=== PATIENT | male | born 1955 | race American Indian/Alaskan Native ===

== ENCOUNTER 2016-09-16 16:00 | Emergency (ER) | payer OTHER ==
--- NOTE | 2016-09-16 23:29 | Emergency Department Report ---
HPI - General Chief Complaint: Extremity Injury, Lower Time Seen by Provider: 09/16/16 22:51 - HPI HPI: This is a 61-year-old Afro-[place] male presents to the emergency department with complaint of a one-week history of swelling to the left lower extremity from the middle of the aguilar down through the ankle and foot. It also is associated with some intermittent discomfort. This occurred started shortly after the patient had a collision with another person while sliding while playing soccer. He denies any cleats went into the leg. Patient has been ambulatory since this began. He has not taken anything for symptoms prior to presentation. He has a past medical history of [id number] diabetes. He has a primary care doctor, Dr. Bone, but has not seen them regarding his symptoms. No recent travel or sick contacts at home. He denies any history of DVT or PE. He denies any skin color change, warmth, bleeding, weeping or drainage. ED Past Medical Hx - Past Medical History Hx Diabetes: Yes - Surgical History Past Surgical History?: No - Social History Smoking Status: Never Smoker Substance Use Type: None - Medications Home Medications: Home Medications Medication Instructions Recorded Confirmed Last Taken Type metFORMIN [Glucophage] 1,000 mg PO BID 09/16/16 09/16/16 09/16/16 History ED Review of Systems ROS: Stated complaint: BRUISED AGUILAR/SWOLLEN ANKLE Other details as noted in HPI Comment: All other systems reviewed and negative Constitutional: denies: chills, fever Eyes: denies: eye pain, eye discharge, vision change ENT: denies: ear pain, throat pain Respiratory: denies: cough, shortness of breath, wheezing Cardiovascular: edema. denies: chest pain, palpitations Gastrointestinal: denies: abdominal pain, nausea, diarrhea Genitourinary: denies: urgency, dysuria Musculoskeletal: arthralgia, myalgia Skin: denies: rash, lesions Neurological: denies: headache, weakness, paresthesias Physical Exam - Physical Exam Vital Signs: Vital Signs 09/16/16 09/16/16 09/16/16 16:25 23:03 23:10 Temperature 98 F 98.3 F Pulse Rate 73 85 Respiratory 18 18 Rate Blood Pressure 150/89 Blood Pressure 146/93 [Left] O2 Sat by Pulse 100 100 100 Oximetry Physical Exam: GENERAL: The patient is well-developed well-nourished. HEENT: Normocephalic. Atraumatic. Extraocular motions are intact. Patient has moist mucous membranes. Pupils equal reactive to light bilaterally. NECK: Supple. Trachea is midline. CHEST/LUNGS: Clear to auscultation. There is no respiratory distress noted. HEART/CARDIOVASCULAR: Regular. There is no tachycardia. There is no gallop rub or murmur. ABDOMEN: Abdomen is soft, nontender. Patient has normal bowel sounds. There is no abdominal distention. SKIN: There is some nonpitting swelling to the left lower extremity from the mid tib-fib down distally through the foot. No warmth, fluctuance, rash, erythema. NEURO: The patient is awake, alert, and oriented. The patient is cooperative. The patient has no focal neurologic deficits. The patient has normal speech. MUSCULOSKELETAL: There is mild tenderness palpation to the distal half of the left tib-fib but no obvious deformity other than some nonpitting swelling. There is no limitation range of motion. Pedal pulses +2 over 4 bilaterally. Cap refill less than 2 seconds. Full range of motion to the bilateral lower extremities. ED Course Vital Signs 09/16/16 09/16/16 09/16/16 16:25 23:03 23:10 Temperature 98 F 98.3 F Pulse Rate 73 85 Respiratory 18 18 Rate Blood Pressure 150/89 Blood Pressure 146/93 [Left] O2 Sat by Pulse 100 100 100 Oximetry ED Medical Decision Making - Lab Data Result diagrams: 09/16/16 23:03 09/16/16 23:03 - Radiology Data Radiology results: image reviewed interpreted by me: X-ray of the left tib-fib and ankle does not show any fracture, dislocation or any acute process. - Medical Decision Making 61-year-old male presents to the ER with a complaint of a one-week history of intermittent left lower extremity pain and a one week history of swelling since he had a collision while sliding in playing soccer. There is some nonpitting swelling to that left lower extremity but there is no fluctuance, warmth, erythema, rash or any other acute process seen. He has cap refill less than 2 seconds and palpable needle pulses are normal. X-rays were done of the left tib -fib and ankle that did not show any fracture or dislocation or any obvious deformity. Since there was trauma involved and he continues to have swelling and some intermittent discomfort, the patient will be placed on crutches and given a splint. He already has an appointment with an orthopedist coming up this Sunday. He will be given an order to come back tomorrow to outpatient radiology for a lower extremity venous Doppler. If positive he'll be redirected back to the emergency department. If negative he will continue with his follow-up with primary care and his orthopedist. Despite the fact that he has swelling the compartments are soft and there is low suspicion for compartment syndrome. - Differential Diagnosis fracture, DVT, venous stasis Critical Care Time: No Critical care attestation.: If time is entered above; I have spent that time in minutes in the direct care of this critically ill patient, excluding procedure time. ED Disposition Clinical Impression: Left leg swelling, Left leg pain Disposition: DISCHARGED TO HOME OR SELFCARE Is pt being admited?: No Condition: Stable Instructions: Arthralgia (ED), Leg Edema (ED) Additional Instructions: Please follow-up with your primary care doctor and/or orthopedist as previously scheduled. However you will need to return tomorrow to the outpatient radiology for a left lower extremity venous Doppler ultrasound to rule out a blood clot. You should receive a call from the radiology department with a specific time. If this test is positive, you will be redirected back to the emergency department. If negative, he will continue with her follow-up with primary care and orthopedist. I would remain nonweightbearing to that left lower extremity until follow-up with the orthopedist. Return to the emergency department with any worsening of your symptoms or any acute distress. Referrals: [facility] [Other] - 3-5 Days Time of Disposition: 00:43
[2016-09-16 23:36] LABS: Basophils % (Auto) 0.3 % (0.0-1.8); Hematocrit 40.4 % (35.5-45.6); Hemoglobin 13.4 gm/dl (11.8-15.2); Mean Corpuscular HGB Conc 33 % (32-34); Mean Corpuscular Hemoglobin 29 pg (28-32); Mean Corpuscular Volume 87 fl (84-94); Platelet Count 225 K/mm3 (140-440); Red Blood Count 4.64 M/mm3 (3.65-5.03); Red Cell Distribution Width 14.7 % (13.2-15.2); White Blood Count 8.2 K/mm3 (4.5-11.0)
[2016-09-16 23:42] LABS: Anion Gap 18 mmol/L; Blood Urea Nitrogen 8 mg/dL (9-20); Calcium 9.4 mg/dL (8.4-10.2); Carbon Dioxide 26 mmol/L (22-30); Chloride 96.5 mmol/L (98-107); Creatine Kinase 523 units/L (55-170); Glucose 122 mg/dL (75-100); Sodium 136 mmol/L (137-145)
[2016-09-17] MEDS: TORADOL IM ONE (00:50)
[2016-09-17 01:55] VITALS: BP 130/86
--- NOTE | 2016-09-17 09:57 | XRay Report ---
LEFT ANKLE, 3 VIEWS History: Left ankle pain and swelling. Findings: There is diffuse nonspecific soft tissue swelling. Normal bone mineralization. No acute osseous injury or bony lesion. 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 Impression: Nonspecific soft tissue swelling. Mild degenerative changes. No acute bony injury is appreciated.
--- NOTE | 2016-09-17 09:57 | XRay Report ---
LEFT TIBIA/FIBULA: History: Left leg pain and swelling. AP and lateral views of the left tibia/fibula demonstrate normal mineralization and contours for this patient's age. No destructive changes are noted and the adjacent soft tissues are normal. IMPRESSION: Normal left tibia/fibula.
== END 2016-09-17 01:50 | disposition home or self-care (01) ==
LOC: ED 16:00
DX: M79.605 Pain in left leg (principal); M79.89 Other specified soft tissue disorders; E11.9 Type 2 diabetes mellitus without complications
CPT/HCPCS: 36415; 80048; 82550; 85025; 96372; 99284; J1885

== ENCOUNTER 2016-09-17 12:22 | Outpatient (CLI) | payer OTHER | END 2016-09-17 12:23 | disposition home or self-care (01) | LOC: VAS 12:22 | PROVIDERS: ATTEND Emergency Medicine | DX: M79.662 Pain in left lower leg (principal); M79.89 Other specified soft tissue disorders ==